=== PATIENT | male | born 1955 | race Two or more races ===

== ENCOUNTER 2022-09-04 08:22 | Day surgery (SDC) | payer OTHER ==
[~2022-09-04] VITALS: Ht 167.6 cm; Wt 103.4 kg
[~2022-09-04 08:22] MED LIST: DIOVAN320 MG PO; ROSUVASTATIN CA40 MG PO; SYNJARDY 12.5-1 EAC1 PO
[2022-09-04] MEDS ORDERED: PERCOCET 5-3251 EACH PO (17:06)
== END 2022-09-04 20:10 | disposition home or self-care (01) ==
LOC: CIR.AMB 08:22
PROVIDERS: ATTEND Surgery
DX: N52.01 Erectile dysfunction due to arterial insufficiency (principal); Z20.822 Contact with and (suspected) exposure to COVID-19; I10 Essential (primary) hypertension; E11.9 Type 2 diabetes mellitus without complications; E78.5 Hyperlipidemia, unspecified
CPT/HCPCS: 54405; C1813